=== PATIENT | male | born 1960 | race Caucasian/White ===

== ENCOUNTER 2019-05-02 01:31 | Day surgery (SDC) | payer BC, SELFPAY ==
[2019-04-26 10:50] VITALS: BMI 34.3
[2019-05-02 06:16] VITALS: BP 146/87; PULSE 67; RESP 18; TEMP 36.4; O2SAT 96
[2019-05-02 06:33] LABS: Glucose Point of Care 153 (65-105)
[2019-05-02] MEDS: LACTATED RINGERS 1,000 ML 150 ML IV CONT (06:33)
--- NOTE | 2019-05-02 06:39 | P.PNAN_ITS ---
Anes - Initial Pre Proc Eval Procedure: Operation Date: 05/02/19 07:30 Proposed Procedures p Screening Colonoscopy - Franky Cardoza MD Date/Time: 05/02/19 06:39 Surgeon: Franky Cardoza MD Pre Op Diagnosis: Fm Hx Of Colon CA Patient Data Age: 58 Gender: M Height: 1.85 m Weight: 115 kg Last Vital Signs Temp 36.4 C L 05/02/19 06:16 Pulse 67 05/02/19 06:16 Resp 18 05/02/19 06:16 BP 146/87 H 05/02/19 06:16 Pulse Ox 96 05/02/19 06:16 Allergies Allergy/AdvReac Type Severity Reaction Status Date / Time Penicillins Allergy Intermediate Hives Verified 05/02/19 06:08 Home Medications Medication Instructions Recorded Confirmed Type allopurinol 100 mg PO BID 04/26/19 04/26/19 History aspirin [Adult Low Dose Aspirin] 81 mg PO DAILY 04/26/19 04/26/19 History carvedilol 12.5 mg PO BID 04/26/19 04/26/19 History fenofibrate 54 mg PO DAILY 04/26/19 04/26/19 History lovastatin 20 mg PO DAILY 04/26/19 04/26/19 History metformin 500 mg PO BID 04/26/19 05/02/19 History valsartan-hydrochlorothiazide 1 tablet PO DAILY 04/26/19 05/02/19 History Laboratory Tests 05/02/19 06:28 POC Capillary Glucose 153 mg/dl H mg/dl (65-105) Patient hx anesthesia problems: none Family hx anesthesia problems: none [facility] Past Medical History Medical History (Updated 05/01/19 @ 13:20 by Tobias Olivarez DO) Diabetes type 2, controlled Hyperlipidemia Hypertension Anes - Eval Final PreProcedure Day of Procedure 05/02/19 06:39 Patient weight: obese Heart: regular rate and rhythm Lungs: clear to auscultation and normal air movement Airway: Mallampati scale class II Neurological: alert and oriented Last oral intake: >/= 8 hours ASA classification: III Emergent: no Anesthetic plan: proceed Anesthesia type and monitoring: general GIVS and standard monitoring Informed Consent: The patient's anesthetic plan and its attendant risks and benefits were discussed with the patient/family/POA. Questions were solicited and answers provided to the satisfaction of the patient/family/POA.
--- NOTE | 2019-05-02 06:46 | PM.HPGS ---
History of Present Illness History of Present Illness Consent: Risks, benefits, and alternatives have been discussed and questions answered. Patient agrees to proceed with procedure. Chief complaint: Fm Hx Of Colon CA Narrative: Jagdeep Conroy is a 58 year old W male Presents for screening colonoscopy secondary to family history of colon polyps in his father and colon cancer in paternal grandfather. Patient has intermittent diarrhea does have a history of hemorrhoids. His last colonoscopy confirmed hemorrhoids otherwise no polyps were seen. [facility] Past Medical History Medical History Diabetes type 2, controlled Gout Hyperlipidemia Hypertension Surgical History Surgical History Status post tonsillectomy and adenoidectomy Meds Home Medications and Allergies Home Medications Medication Instructions Recorded Confirmed Type allopurinol 100 mg PO BID 04/26/19 04/26/19 History aspirin [Adult Low Dose Aspirin] 81 mg PO DAILY 04/26/19 04/26/19 History carvedilol 12.5 mg PO BID 04/26/19 04/26/19 History fenofibrate 54 mg PO DAILY 04/26/19 04/26/19 History lovastatin 20 mg PO DAILY 04/26/19 04/26/19 History metformin 500 mg PO BID 04/26/19 05/02/19 History valsartan-hydrochlorothiazide 1 tablet PO DAILY 04/26/19 05/02/19 History Allergies Allergy/AdvReac Type Severity Reaction Status Date / Time Penicillins Allergy Intermediate Hives Verified 05/02/19 06:08 Vital Signs Vital Signs - 24 hr 05/02/19 06:16 Temperature 36.4 C L Pulse Rate 67 Respiratory Rate 18 Blood Pressure 146/87 H Pulse Oximetry 96 Exam Const: Orientation/consciousness: patient oriented x3 Resp: Auscultation: clear to auscultation bilaterally Cardio: Rate: regular rate Rhythm: regular rhythm Heart sounds: no murmurs GI: GI Palp: Yes Soft to palpation, No Tenderness to palpation present (GI), Yes No hepatosplenomegaly present and No Palpable mass present Auscultation: normal bowel sounds Neuro: General: patient oriented x3 and no focal motor deficits Extrem: General: no pedal edema Assessment and Plan Additional Plan screening colonoscopy in high risk patient
[2019-05-02] MEDS: SIMETHICONE ORAL SUSPENSION 20 MG/0.3 ML 30 ML BOTTLE 0.6 ML IRRIGATION (07:36)
[2019-05-02 07:46] VITALS: BP 111/67; PULSE 58; RESP 18; O2SAT 96
[2019-05-02 07:56] VITALS: BP 115/75; PULSE 52; RESP 18; O2SAT 95
[2019-05-02 08:06] VITALS: BP 110/71; PULSE 51; RESP 18; O2SAT 95
== END 2019-05-02 08:25 | disposition home or self-care (01) ==
PROVIDERS: PCP Internal Medicine; Visit Provider Internal Medicine Gastroenterology
PROC: 0DJD8ZZ Inspection of Lower Intestinal Tract, Via Natural or Artificial Opening Endoscopic (ICD-10-PCS; CPT 45378; principal; 2019-05-02 07:30)
DX: Z12.11 Encounter for screening for malignant neoplasm of colon (principal); K64.8 Other hemorrhoids; K64.4 Residual hemorrhoidal skin tags; Z80.0 Family history of malignant neoplasm of digestive organs; Z83.71 Family history of colonic polyps; I10 Essential (primary) hypertension; E78.5 Hyperlipidemia, unspecified; E11.9 Type 2 diabetes mellitus without complications; M10.9 Gout, unspecified; Z79.84 Long term (current) use of oral hypoglycemic drugs; Z79.82 Long term (current) use of aspirin; E66.9 Obesity, unspecified; Z68.33 Body mass index [BMI] 33.0-33.9, adult
CPT/HCPCS: 45378; J2704; J7120